=== PATIENT | male | born 1960 | race Caucasian/White ===

== ENCOUNTER 2022-12-17 06:52 | Day surgery (SDC) | payer MEDICARE, OTHER ==
[~2022-12-17] VITALS: Ht 160 cm; Wt 72.1 kg
[~2022-12-17 06:52] MED LIST: ALBU90OI; FLONASE ALLERG9.9 M2; GLUCOPHAGE1000 M1; KETO.5OPSO; LISI5; ROSU10TA PO
--- NOTE | 2022-12-17 07:16 | NUR ---
12/17/22 0716 Reinaldo Ambrosio CALL LIGHT WITHIN REACH. MAYNORE IN AT [phone] AND PAPITO IN AT [phone] IN THE LEFT EYE
--- NOTE | 2022-12-17 08:23 | NUR ---
12/17/22 0823 Joseline Arias TRYPAN BLUE USED AT START OF CASE.
[2022-12-17 08:35] VITALS: BP 125/99
--- NOTE | 2022-12-17 08:38 | NUR ---
12/17/22 0838 IRVING MOBLEY IV REMOVED. WNL. PAVEL WELL CANNULA INTACT
== END 2022-12-17 08:55 | disposition home or self-care (01) ==
LOC: ORSCSDS 06:52
PROVIDERS: Student in an Organized Health Care Education/Training Program
PROC: 08RK3JZ Replacement of Left Lens with Synthetic Substitute, Percutaneous Approach (ICD-10-PCS; principal; 2022-12-17 08:00)
DX: E13.36 Other specified diabetes mellitus with diabetic cataract (principal); J44.9 Chronic obstructive pulmonary disease, unspecified; I10 Essential (primary) hypertension; Z79.84 Long term (current) use of oral hypoglycemic drugs; Z79.899 Other long term (current) drug therapy; Z87.891 Personal history of nicotine dependence
CPT/HCPCS: 82947; J2001; J2250; J3010; J7040; V2632

== ENCOUNTER 2022-12-31 07:52 | Day surgery (SDC) | payer MEDICARE, OTHER ==
[~2022-12-31] VITALS: Ht 160 cm; Wt 67.1 kg
--- NOTE | 2022-12-31 08:21 | NUR ---
12/31/22 0821 Valerie Serrato [phone] PAPITO [phone]
[2022-12-31 09:12] VITALS: BP 119/103
== END 2022-12-31 09:27 | disposition home or self-care (01) ==
LOC: ORSCSDS 07:52
PROVIDERS: Student in an Organized Health Care Education/Training Program
PROC: 08RJ3JZ Replacement of Right Lens with Synthetic Substitute, Percutaneous Approach (ICD-10-PCS; principal; 2022-12-31 09:00)
DX: E11.36 Type 2 diabetes mellitus with diabetic cataract (principal); H25.11 Age-related nuclear cataract, right eye; Z96.1 Presence of intraocular lens; J44.9 Chronic obstructive pulmonary disease, unspecified; I10 Essential (primary) hypertension; Z87.891 Personal history of nicotine dependence; Z79.84 Long term (current) use of oral hypoglycemic drugs; Z79.899 Other long term (current) drug therapy
CPT/HCPCS: 82947; J2250; J3010; J7040; V2632

== ENCOUNTER → 2023-01-31 | Outpatient (CLI) | payer MEDICARE, OTHER ==
[2023-01-31 19:11] LABS: CHOL/HDL RATIO 4.8; Cholesterol 211 mg/dL (50-200); HDL Cholesterol 44 mg/dL (>39); LDL/HDL RATIO 3.1; Low Density Lipoprotein Chol 137 mg/dL (0-110); Triglycerides 152 mg/dL (30-160); Very Low Density Lipoprot Chol 30 mg/dL (6-32)
== END ==
LOC: LAB 15:25 → LAB SHORT 15:25
PROVIDERS: Family Medicine
DX: E78.5 Hyperlipidemia, unspecified (principal)
CPT/HCPCS: 80061

== ENCOUNTER 2023-03-09 15:06 | Emergency (ER) | payer MEDICARE, OTHER ==
[~2023-03-09] VITALS: Ht 160 cm; Wt 69.8 kg
[2023-03-09 15:31] LABS: BASOPHILS ABSOLUTE AUTO 0.04 K/mm3 (0.00-0.23); BASOPHILS PERCENT AUTO 0 % (0-2); EOSINOPHILS ABSOLUTE AUTO 0.01 K/mm3 (0.00-0.68); EOSINOPHILS PERCENT AUTO 0 % (0-6); Hematocrit 45.2 % (37.0-53.0); Hemoglobin 15.3 g/dL (13.5-17.5); IMMATURE GRAN ABSOLUTE AUTO 0.09 K/mm3 (0.00-0.10); IMMATURE GRAN PERCENT AUTO 1 % (0-1); LYMPHOCYTES ABSOLUTE AUTO 1.56 K/mm3 (0.84-5.20); LYMPHOCYTES PERCENT AUTO 14 % (21-46); MONOCYTES ABSOLUTE AUTO 0.39 K/mm3 (0.16-1.47); MONOCYTES PERCENT AUTO 4 % (4-13); Mean Corpuscular HGB 30.3 pg (26.0-34.0); Mean Corpuscular HGB Conc 33.8 g/dL (31.5-36.5); Mean Corpuscular Volume 90 fL (80-100); Mean Platelet Volume 10.8 fL (9.1-12.4); NEUTROPHILS ABSOLUTE AUTO 8.92 K/mm3 (1.96-9.15); NEUTROPHILS PERCENT AUTO 81 % (41-73); Platelet Count 351 K/mm3 (150-400); RDW Standard Deviation 39.2 fL (35.1-46.3); Red Blood Cell Count 5.05 M/mm3 (4.30-5.90); White Blood Cell Count 11.01 K/mm3 (4.00-11.30)
[2023-03-09 15:46] LABS: Bilirubin, Total 0.4 mg/dL (0.1-1.0); Calcium, Blood 10.3 mg/dL (8.5-10.1); Creatinine, Blood 0.61 mg/dL (0.60-1.20)
[2023-03-09] MEDS ORDERED: ONDA4ODT MM (16:25)
[2023-03-09 17:45] VITALS: BP 118/97
== END 2023-03-09 17:50 | disposition home or self-care (01) ==
LOC: ER 15:06
PROVIDERS: Emergency Medicine
DX: R11.10 Vomiting, unspecified (principal); E11.9 Type 2 diabetes mellitus without complications; Z79.84 Long term (current) use of oral hypoglycemic drugs; Z79.899 Other long term (current) drug therapy
CPT/HCPCS: 80053; 83690; 85025; 96361; 96374; 99284-25; J2405; J7030

== ENCOUNTER 2023-05-09 19:19 | Emergency (ER) | payer OTHER ==
[~2023-05-09] VITALS: Ht 160 cm; Wt 62.6 kg
[~2023-05-09 19:19] MED LIST changes: -GLUCOPHAGE1000 M1; +GLUCOPHAGE1000 M1 PO; -LISI5; +LISI5 PO; +ONDA4ODT MM
[2023-05-09] MEDS ORDERED: METO5A PO (19:37)
[2023-05-09] MEDS ORDERED: FAMO20 PO (19:37)
[2023-05-09] MEDS ORDERED: Lactated Ringer's 1,000 ML IV ONE (19:45)
[2023-05-09] MEDS ORDERED: Lidocaine 2% Viscous Soln 15 ML UDC PO ONE (19:45)
[2023-05-09] MEDS ORDERED: Droperidol 5 mg/2 ml Vial IV ONE (19:45)
[2023-05-09] MEDS ORDERED: Mag Hydrox/AL Hydrox/Simeth 30 ML UDC PO ONE (19:45)
[2023-05-09 20:10] LABS: Base Excess Venous 5.1 mmol/L; Bicarbonate Venous 28.8 mmol/L (24.0-30.0); PCO2 Venous 37.8 mmHg (38-42); pH Blood Venous 7.49 (7.34-7.37)
[2023-05-09 20:30] LABS: Albumin, Blood 3.9 g/dL (3.4-5.0); Beta-hydroxybutyrate 8.6 mg/dL (0.2-2.8); Bilirubin, Total 0.4 mg/dL (0.1-1.0); Bun/Creatinine Ratio 27.8 (12.0-20.0); Creatinine, Blood 0.58 mg/dL (0.60-1.20); Globulin, Blood 3.8 g/dL (2.2-4.0); Magnesium, Blood 1.6 mg/dL (1.6-2.4); Potassium, Blood 4.6 mmol/L (3.5-5.5); Total Protein, Blood 7.7 g/dL (6.4-8.2)
[2023-05-09] MEDS ORDERED: PROM12.5S PR (21:54)
[2023-05-09] MEDS ORDERED: ONDA4ODT MM (21:54)
[2023-05-09] MEDS ORDERED: RX Prepack 2 Tabs Ondansetron ODT 4MG UD ONE (21:55)
[2023-05-09 22:15] VITALS: BP 103/63
[2023-06-30] MEDS ORDERED: ALBU90OI INH (17:17)
== END 2023-05-09 22:43 | disposition home or self-care (01) ==
LOC: ER 19:19
PROVIDERS: Student in an Organized Health Care Education/Training Program
DX: E11.65 Type 2 diabetes mellitus with hyperglycemia (principal); E86.0 Dehydration; E87.1 Hypo-osmolality and hyponatremia; Z79.899 Other long term (current) drug therapy; Z79.84 Long term (current) use of oral hypoglycemic drugs
CPT/HCPCS: 80053; 82010; 82803; 83735; 93005; 93010; 96361; 96374; 99284-25; A9270; J1790; J7120

== ENCOUNTER → 2023-10-01 | Outpatient (CLI) | payer MEDICARE, OTHER ==
[~2023-10-01] MED LIST changes: +ALBU90OI INH; +FAMO20 PO; +METO5A PO; +PROM12.5S PR
== END | disposition home or self-care (01) ==
LOC: LAB 11:05 → LAB SHORT 11:05
DX: E11.9 Type 2 diabetes mellitus without complications (principal)
CPT/HCPCS: 82043

== ENCOUNTER 2023-12-01 09:38 | Emergency (ER) | payer MEDICARE, OTHER ==
[~2023-12-01] VITALS: Ht 160 cm; Wt 67.1 kg
[2023-12-01 10:43] VITALS: BP 124/93
[2023-12-01 11:23] LABS: BASOPHILS ABSOLUTE AUTO 0.02 K/mm3 (0.00-0.23); BASOPHILS PERCENT AUTO 0 % (0-2); EOSINOPHILS ABSOLUTE AUTO 0.01 K/mm3 (0.00-0.68); EOSINOPHILS PERCENT AUTO 0 % (0-6); Hematocrit 34.4 % (37.0-53.0); Hemoglobin 11.1 g/dL (13.5-17.5); IMMATURE GRAN ABSOLUTE AUTO 0.04 K/mm3 (0.00-0.10); IMMATURE GRAN PERCENT AUTO 0 % (0-1); LYMPHOCYTES ABSOLUTE AUTO 2.59 K/mm3 (0.84-5.20); LYMPHOCYTES PERCENT AUTO 26 % (21-46); MONOCYTES ABSOLUTE AUTO 0.82 K/mm3 (0.16-1.47); MONOCYTES PERCENT AUTO 8 % (4-13); Mean Corpuscular HGB Conc 32.3 g/dL (31.5-36.5); Mean Corpuscular Volume 93 fL (80-100); Mean Platelet Volume 11.9 fL (9.1-12.4); NEUTROPHILS ABSOLUTE AUTO 6.45 K/mm3 (1.96-9.15); NEUTROPHILS PERCENT AUTO 65 % (41-73); Platelet Count 335 K/mm3 (150-400); RDW Coefficient Variation 13.1 % (11.7-14.2); RDW Standard Deviation 44.6 fL (35.1-46.3); White Blood Cell Count 9.93 K/mm3 (4.00-11.30)
[2023-12-01 11:26] LABS: Albumin, Blood 3.3 g/dL (3.4-5.0); Albumin/Globulin Ratio 1.1 (0.8-1.8); Bilirubin, Total 0.3 mg/dL (0.1-1.0); Bun/Creatinine Ratio 38.3 (12.0-20.0); Calcium, Blood 8.6 mg/dL (8.5-10.1); Creatinine, Blood 0.89 mg/dL (0.60-1.20); Potassium, Blood 4.8 mmol/L (3.5-5.5); Total Protein, Blood 6.3 g/dL (6.4-8.2)
[2023-12-01] MEDS ORDERED: NS 1,000 ML IV SCH (12:05)
[2023-12-01 13:58] LABS: Base Excess Venous -5.2 mmol/L; Bicarbonate Venous 20.1 mmol/L (24.0-30.0); PCO2 Venous 42.8 mmHg (38-42)
== END 2023-12-01 14:19 | disposition home or self-care (01) ==
LOC: ER 09:38
PROVIDERS: Physician Assistant; Student in an Organized Health Care Education/Training Program
DX: E11.65 Type 2 diabetes mellitus with hyperglycemia (principal); I10 Essential (primary) hypertension; J44.9 Chronic obstructive pulmonary disease, unspecified; E11.40 Type 2 diabetes mellitus with diabetic neuropathy, unspecified; E11.43 Type 2 diabetes mellitus with diabetic autonomic (poly)neuropathy; K31.84 Gastroparesis; K21.9 Gastro-esophageal reflux disease without esophagitis; Z79.4 Long term (current) use of insulin; Z79.899 Other long term (current) drug therapy; Z79.84 Long term (current) use of oral hypoglycemic drugs
CPT/HCPCS: 80053; 82803; 82947; 85025; 96360; 99285-25; J7030

== ENCOUNTER 2023-12-06 10:03 | Emergency (ER) | payer MEDICARE, OTHER ==
[~2023-12-06] VITALS: Ht 175.3 cm; Wt 81.7 kg
[2023-12-06 10:06] VITALS: BP 130/100
[2023-12-06 10:31] LABS: Calcium, Ionized (POC) 1.08 mmol/L (1.10-1.46); Chloride (POC) 110 mmol/L (98-108); Creatinine (POC) 1.2 mg/dL (0.8-1.3); Glucose (ISTAT POC) 310 mg/dL (70-99); Hemoglobin (POC) 11.6 g/dL (13.5-17.5); Potassium (POC) 5.4 mmol/L (3.5-5.5); Sodium (POC) 138 mmol/L (135-148); Total CO2 (POC) 15 mmol/L (21-32)
[2023-12-06] MEDS ORDERED: Rocuronium Bromide 10 MG/ML 5ML Injection IV ONE (13:46)
[2023-12-06] MEDS ORDERED: Ketamine HCl 100 MG / ML 5ML Vial IV ONE (13:46)
[2023-12-06] MEDS ORDERED: EPINEPhrine HCl 0.1 MG/ML 10ML SYR XX ONE (13:49)
[2023-12-06] MEDS ORDERED: Amiodarone HCl 50 MG / ML 3 ML Amp IV ONE (13:49)
== END 2023-12-06 13:54 ==
LOC: ER 10:03
PROVIDERS: Emergency Medicine
DX: I46.9 Cardiac arrest, cause unspecified (principal); I10 Essential (primary) hypertension; J44.9 Chronic obstructive pulmonary disease, unspecified; E11.43 Type 2 diabetes mellitus with diabetic autonomic (poly)neuropathy; K31.84 Gastroparesis; E11.42 Type 2 diabetes mellitus with diabetic polyneuropathy; E78.5 Hyperlipidemia, unspecified; K21.9 Gastro-esophageal reflux disease without esophagitis; H91.8X9 Other specified hearing loss, unspecified ear; Z79.84 Long term (current) use of oral hypoglycemic drugs; Z79.899 Other long term (current) drug therapy
CPT/HCPCS: 80047; 85014; 92950; 92953; 99285-25; J0171; J0282; J7060